=== PATIENT | male | born 1975 | race Caucasian/White ===

== ENCOUNTER 2017-03-10 23:13 | Emergency (ER) | payer SELFPAY ==
[~2017-03-10] VITALS: Ht 175.3 cm; Wt 86.2 kg
[2017-03-10 23:30] VITALS: BP 145/89
[2017-03-11 00:39] LABS: EOSINOPHILS % (AUTO) 1.6 % (0.0-3.0); LYMPHOCYTES % (AUTO) 29.7 % (20.0-45.0); MEAN CORPUSCULAR HEMOGLOBIN 30.9 PG (27.0-31.0); MEAN CORPUSCULAR HGB CONC 32.9 G/DL (32.0-36.0); MEAN CORPUSCULAR VOLUME 94 FL (80-99); MEAN PLATELET VOLUME 5.7 FL (6.5-10.1); MONOCYTES % (AUTO) 6.4 % (1.0-10.0); NEUTROPHILS % (AUTO) 61.4 % (45.0-75.0); PLATELET COUNT 203 K/UL (150-450); RED BLOOD COUNT 5.04 M/UL (4.70-6.10); RED CELL DISTRIBUTION WIDTH 13.2 % (11.6-14.8)
[2017-03-11 02:00] LABS: ALANINE AMINOTRANSFERASE 91 U/L (12-78); ANION GAP 11 (5-15); ASPARTATE AMINO TRANSFERASE 38 U/L (15-37); CALCIUM 9.2 MG/DL (8.5-10.1); CARBON DIOXIDE 26 MMOL/L (21-32); CHLORIDE 99 MMOL/L (98-107); CKMB 0.8 NG/ML (0.0-3.6); CREATININE 0.9 MG/DL (0.55-1.30); GLOMERULAR FILTRATION RATE > 60 mL/min (>60); LIPASE 148 U/L (73-393); POTASSIUM 3.2 MMOL/L (3.5-5.1); SODIUM 135 MMOL/L (136-145); TOTAL PROTEIN 8.4 G/DL (6.4-8.2)
[2017-03-11 04:45] VITALS: BP 138/84
[2017-03-11 04:56] VITALS: BP 138/84
[2017-03-11 05:23] LABS: ALBUMIN/GLOBULIN RATIO 1.1 (1.0-2.7)
--- NOTE | 2017-03-11 06:12 | Emergency Room Report ---
History of Present Illness General Chief Complaint: Chest Pain Source: Patient, EMS Present Illness HPI Patient present with complaints of chest pain He reports that he was shaking alcohol earlier he started feeling palpitations and discomfort Denies any vomiting or diarrhea Patient had 5/10 pain Soon after presentation patient felt better and was resting comfortably Denies any neck pain or photophobia denies any tearing sensation patient some minimal epigastric discomfort and nausea Allergies: Coded Allergies: No Known Allergies (Unverified , 03/10/17) Patient History Past Medical History: see triage record Pertinent Family History: none Reviewed Nursing Documentation: PMH: Agreed, PSxH: Agreed Review of Systems All Other Systems: negative except mentioned in HPI Physical Exam Vital Signs Date Time Temp Pulse Resp B/P (MAP) Pulse Ox O2 Delivery O2 Flow Rate FiO2 03/10/17 23:14 99.0 90 16 162/94 98 Room Air Sp02 EP Interpretation: reviewed, normal General Appearance: well appearing, no apparent distress Head: normocephalic, atraumatic Eyes: bilateral eye PERRL, bilateral eye EOMI ENT: hearing grossly normal, normal pharynx, TMs + canals normal, uvula midline Neck: full range of motion, supple, no meningismus, no bony tend Respiratory: lungs clear, normal breath sounds, no rhonchi, no respiratory distress, no retraction, no accessory muscle use Cardiovascular #1: normal peripheral pulses, regular rate, rhythm, no edema, no gallop, no JVD, no murmur Gastrointestinal: normal bowel sounds, non tender, soft, no mass, no organomegaly, non-distended, no guarding, no hernia, no pulsatile mass, no rebound Genitourinary: no CVA tenderness Musculoskeletal: normal inspection Neurologic: oriented x3, responsive, clerk secretary III-XII nml as tested, motor strength/ tone normal, sensory intact Psychiatric: mood/affect normal Skin: normal color, no rash, warm/dry, palpation normal Lymphatic: normal inspection, no adenopathy Medical Decision Making Diagnostic Impression: Primary Impression: Chest pain ER Course Patient is a fairly complex patient with multiple differential to consideration including but not limited to cardiac cardiopulmonary and vascular emergencies Patient rested comfortably throughout his stay remains hemodynamically stable Patient feel significantly improved Blood work and EKG did not show any acute pathology and the patient is stable for close followup Labs Test 03/10/17 23:20 03/10/17 23:53 03/11/17 01:15 Urine Opiates Screen Negative (NEGATIVE) Negative (NEGATIVE) Urine Barbiturates Screen Negative (NEGATIVE) Negative (NEGATIVE) Phencyclidine (PCP) Screen Negative (NEGATIVE) Negative (NEGATIVE) Urine Amphetamines Screen Negative (NEGATIVE) Negative (NEGATIVE) Urine Benzodiazepines Screen Negative (NEGATIVE) Positive (NEGATIVE) Urine Cocaine Screen Positive (NEGATIVE) Negative (NEGATIVE) Urine Marijuana (THC) Screen Negative (NEGATIVE) Negative (NEGATIVE) White Blood Count 7.0 K/UL (4.8-10.8) Red Blood Count 5.04 M/UL (4.70-6.10) Hemoglobin 15.6 G/DL (14.2-18.0) Hematocrit 47.2 % (42.0-52.0) Mean Corpuscular Volume 94 FL (80-99) Mean Corpuscular Hemoglobin 30.9 PG (27.0-31.0) Mean Corpuscular Hemoglobin Concent 32.9 G/DL (32.0-36.0) Red Cell Distribution Width 13.2 % (11.6-14.8) Platelet Count 203 K/UL (150-450) Mean Platelet Volume 5.7 FL (6.5-10.1) Neutrophils (%) (Auto) 61.4 % (45.0-75.0) Lymphocytes (%) (Auto) 29.7 % (20.0-45.0) Monocytes (%) (Auto) 6.4 % (1.0-10.0) Eosinophils (%) (Auto) 1.6 % (0.0-3.0) Basophils (%) (Auto) 1.0 % (0.0-2.0) Prothrombin Time 10.0 SEC (9.30-11.50) Prothromb Time International Ratio 1.0 (0.9-1.1) Activated Partial Thromboplast Time 38 SEC (23-33) Sodium Level 135 MMOL/L (136-145) Potassium Level 3.2 MMOL/L (3.5-5.1) Chloride Level 99 MMOL/L (98-107) Carbon Dioxide Level 26 MMOL/L (21-32) Anion Gap 11 (5-15) Blood Urea Nitrogen 12 mg/dL (7-18) Creatinine 0.9 MG/DL (0.55-1.30) Estimat Glomerular Filtration Rate > 60 mL/min (>60) Glucose Level 94 MG/DL (74-106) Calcium Level 9.2 MG/DL (8.5-10.1) Total Bilirubin 0.4 MG/DL (0.2-1.0) Aspartate Amino Transf (AST/SGOT) 38 U/L (15-37) Alanine Aminotransferase (ALT/SGPT) 91 U/L (12-78) Alkaline Phosphatase 125 U/L (46-116) Total Creatine Kinase 85 U/L (26-308) Creatine Kinase MB 0.8 NG/ML (0.0-3.6) Creatine Kinase MB Relative Index 0.9 Troponin I 0.017 ng/mL (0.000-0.056) Pro-B-Type Natriuretic Peptide < 5 (0-125) Total Protein 8.4 G/DL (6.4-8.2) Albumin 4.4 G/DL (3.4-5.0) Globulin 4.0 g/dL Albumin/Globulin Ratio 1.1 (1.0-2.7) Lipase 148 U/L (73-393) Labs Test 03/10/17 23:20 03/10/17 23:53 03/11/17 01:15 Urine Opiates Screen Negative (NEGATIVE) Negative (NEGATIVE) Urine Barbiturates Screen Negative (NEGATIVE) Negative (NEGATIVE) Phencyclidine (PCP) Screen Negative (NEGATIVE) Negative (NEGATIVE) Urine Amphetamines Screen Negative (NEGATIVE) Negative (NEGATIVE) Urine Benzodiazepines Screen Negative (NEGATIVE) Positive (NEGATIVE) Urine Cocaine Screen Positive (NEGATIVE) Negative (NEGATIVE) Urine Marijuana (THC) Screen Negative (NEGATIVE) Negative (NEGATIVE) White Blood Count 7.0 K/UL (4.8-10.8) Red Blood Count 5.04 M/UL (4.70-6.10) Hemoglobin 15.6 G/DL (14.2-18.0) Hematocrit 47.2 % (42.0-52.0) Mean Corpuscular Volume 94 FL (80-99) Mean Corpuscular Hemoglobin 30.9 PG (27.0-31.0) Mean Corpuscular Hemoglobin Concent 32.9 G/DL (32.0-36.0) Red Cell Distribution Width 13.2 % (11.6-14.8) Platelet Count 203 K/UL (150-450) Mean Platelet Volume 5.7 FL (6.5-10.1) Neutrophils (%) (Auto) 61.4 % (45.0-75.0) Lymphocytes (%) (Auto) 29.7 % (20.0-45.0) Monocytes (%) (Auto) 6.4 % (1.0-10.0) Eosinophils (%) (Auto) 1.6 % (0.0-3.0) Basophils (%) (Auto) 1.0 % (0.0-2.0) Prothrombin Time 10.0 SEC (9.30-11.50) Prothromb Time International Ratio 1.0 (0.9-1.1) Activated Partial Thromboplast Time 38 SEC (23-33) Sodium Level 135 MMOL/L (136-145) Potassium Level 3.2 MMOL/L (3.5-5.1) Chloride Level 99 MMOL/L (98-107) Carbon Dioxide Level 26 MMOL/L (21-32) Anion Gap 11 (5-15) Blood Urea Nitrogen 12 mg/dL (7-18) Creatinine 0.9 MG/DL (0.55-1.30) Estimat Glomerular Filtration Rate > 60 mL/min (>60) Glucose Level 94 MG/DL (74-106) Calcium Level 9.2 MG/DL (8.5-10.1) Total Bilirubin 0.4 MG/DL (0.2-1.0) Aspartate Amino Transf (AST/SGOT) 38 U/L (15-37) Alanine Aminotransferase (ALT/SGPT) 91 U/L (12-78) Alkaline Phosphatase 125 U/L (46-116) Total Creatine Kinase 85 U/L (26-308) Creatine Kinase MB 0.8 NG/ML (0.0-3.6) Creatine Kinase MB Relative Index 0.9 Troponin I 0.017 ng/mL (0.000-0.056) Pro-B-Type Natriuretic Peptide < 5 (0-125) Total Protein 8.4 G/DL (6.4-8.2) Albumin 4.4 G/DL (3.4-5.0) Globulin 4.0 g/dL Albumin/Globulin Ratio 1.1 (1.0-2.7) Lipase 148 U/L (73-393) EKG Diagnostic Results Rate: normal Rhythm: NSR ST Segments: no acute changes Rhythm Strip Diag. Results EP Interpretation: yes Rate: 88 Rhythm: NSR, no PVC's, no ectopy Chest X-Ray Diagnostic Results Chest X-Ray Diagnostic Results : Chest X-Ray Ordered: Yes # of Views/Limited/Complete: 1 View Indication: Chest Pain EP Interpretation: Yes Interpretation: no consolidation, no effusion, no pneumothorax Impression: No acute disease Electronically Signed by: Chip Spencer DO Last Vital Signs Date Time Temp Pulse Resp B/P (MAP) Pulse Ox O2 Delivery O2 Flow Rate FiO2 03/11/17 04:56 95 14 138/84 98 Room Air 03/11/17 04:45 98.5 Status: improved Disposition: HOME, SELF-CARE Condition: Improved Referrals: NOT CHOSEN [facility]/MD,REFERRING (PCP) Patient Instructions: Nonspecific Chest Pain Additional Instructions: Patient is provided with the discharge instructions notified to follow up with primary doctor in the next 2-3 days otherwise return to the er with any worsening symptoms. Please note that this report is being documented using [employer] technology. This can lead to erroneous entry secondary to incorrect interpretation by the dictating instrument. CHIP SPENCER D.O. Mar 11, 2017 06:12
--- NOTE | 2017-03-11 12:21 | Diagnostic Imaging Report ---
Indication: Chest pain Comparison: None A single view chest radiograph was obtained. Findings: Cardiomediastinal appearance is within normal limits for age. Pulmonary vascularity is appropriate. The diaphragmatic contour is smooth and costophrenic angles are sharp. No pleural effusions are identified. The bones are unremarkable. Cholecystectomy clips noted in the right upper quadrant of abdomen. Impression: No acute findings
--- NOTE | 2017-03-22 08:39 | Cardiology Report ---
APPROVED REPORT EKG Measurement Heart [id number] CT [id number] Normal sinus rhythm Normal ECG
== END 2017-03-11 05:10 | disposition home or self-care (01) ==
LOC: EDBD 23:13 → EMR 23:33
DX: R07.89 Other chest pain (principal)
CPT/HCPCS: 36415; 71010; 80053; 80300; 82550; 82553; 83690; 83880; 84484; 85025; 85610; 85730; 93005; 99284